=== PATIENT | female | born 1980 | race African-American/Black ===

== ENCOUNTER 2018-08-22 08:14 | Emergency (ER) | payer MEDICAID ==
--- NOTE | 2018-08-22 09:33 | ER Document Report ---
HPI - HPI Time Seen by Provider: 08/22/18 09:06 Pain Level: 3 Context: Patient is a 38-year-old female who presents emergency department for sharp pain in her bilateral breaths. She states that she has had this for the past month. She states that she feels a tingling feeling and when she sleeps on her stomach, on top of her breasts, the pain is worse. She does not take any medications. She does have the Nexplanon control implant in her left arm. She denies any other past medical history. She is not currently breast-feeding. Her last baby was 18 years ago. She denies any nipple discharge at this time, but when she does have nipple discharge it is not bloody. - CONSTITUTIONAL Constitutional: DENIES: Fever, Chills - EENT EENT: DENIES: Sore Throat, Ear Pain, Nasal Drainage-Clear, Nasal Drainage- Purulent, Congestion, Eye problems - NEURO Neurology: DENIES: Headache, Weakness, Vision blurred, Dizzinesss / Vertigo - CARDIOVASCULAR Cardiovascular: DENIES: Chest pain - RESPIRATORY Respiratory: DENIES: Trouble Breathing, Coughing - GASTROINTESTINAL Gastrointestinal: DENIES: Abdominal Pain, Nausea, Patient vomiting, Diarrhea - REPRODUCTIVE Reproductive: DENIES: : - MUSCULOSKELETAL Musculoskeletal: DENIES: Extremity pain, Back Pain, Neck Pain, Swelling - DERM Skin Color: Normal Skin Problems: None - NURSING COMMENTS Comment: Bilateral breast pain Past Medical History - Social History Smoking Status: Never Smoker Family History: Reviewed & Not Pertinent Vertical Provider Document - CONSTITUTIONAL Agree With Documented VS: Yes Exam Limitations: No Limitations General Appearance: No Apparent Distress - HEENT HEENT: Atraumatic, Normocephalic, PERRLA - NECK Neck: Normal Inspection - RESPIRATORY Respiratory: Breath Sounds Normal, No Respiratory Distress - CARDIOVASCULAR Cardiovascular: Regular Rate, Regular Rhythm - MUSCULOSKELETAL/EXTREMETIES Musculoskeletal/Extremeties: FROM - NEURO Level of Consciousness: Awake, Alert, Appropriate - DERM Integumentary: Warm, Dry, No Rash Notes: No lumps noted on breast exam. Course - Re-evaluation Re-evalutation: 08/22/18 09:33 I have a very low suspicion for breast cancer, as the patient does not have any concerning lumps noted on breast exam. I am referring her out to her primary care provider. I have also suggested that she take Sudafed 2 doses today to see if this helps, as she may have dilated mammary glands that could possibly have milk in them. I have also instructed her to take another dose tomorrow if her symptoms do not get better. She is in agreement with this plan. I have also advised her to possibly get an ultrasound. She states she had an ultrasound done 3 years ago, but nothing was found. Verbal discharge instructions were given to the patient. They verbalized understanding. They are stable for discharge. - Vital Signs Vital signs: Temp Pulse Resp BP Pulse Ox 98.8 F 67 16 133/85 H 96 08/22/18 08:21 08/22/18 08:21 08/22/18 08:21 08/22/18 08:21 08/22/18 08:21 Discharge - Discharge Clinical Impression: Pain of both breasts Condition: Stable Disposition: HOME, SELF-CARE Additional Instructions: You are seen today in the emergency department for breast pain. You may have dilated breast ducts with milk in them. Please take Sudafed as directed on your prescription. Please follow-up with your primary care provider in regards to this visit. Prescriptions: Pseudoephedrine HCl [Sudafed] 60 mg PO DAILY #4 tablet Forms: Return to Work
[2018-08-22 09:45] VITALS: BP 147/84
== END 2018-08-22 09:45 | disposition home or self-care (01) ==
LOC: ER 08:14
DX: N64.4 Mastodynia (principal); R20.2 Paresthesia of skin; Z97.5 Presence of (intrauterine) contraceptive device
CPT/HCPCS: 99283

== ENCOUNTER → 2018-12-02 | Outpatient (CLI) | payer MEDICAID ==
--- NOTE | 2018-12-02 11:33 | WOMENS IMAGING REPORT ---
EXAM DESCRIPTION: BILAT DIAGNOSTIC MAMMO W/CAD; U/S BREAST UNILATERAL, COMPL COMPLETED DATE/TIME: 12/02/2018 10:33 am; 12/02/2018 11:12 am REASON FOR STUDY: N64.4 MASTODYNIA; N64.4 LEFT BREAST N64.4 MASTODYNIA COMPARISON: None. EXAM PARAMETERS: Standard craniocaudal and mediolateral oblique views of each breast recorded using digital acquisition. Additional left breast 90 mediolateral view and nipple profile 90 mediolateral view. Additional le ft breast ultrasound. Read with the assistance of CAD: .[facility] - R2 Layout Inspector Version 9.2 LIMITATIONS: None. FINDINGS: RIGHT BREAST MASSES: No suspicious masses. CALCIFICATIONS: No new or suspicious calcifications. ARCHITECTURAL DISTORTION: None. DEVELOPING DENSITY: None. ASYMMETRY: None noted. OTHER: No other significant findings. LEFT BREAST MASSES: No suspicious masses. CALCIFICATIONS: No new or suspicious calcifications. ARCHITECTURAL DISTORTION: None. DEVELOPING DENSITY: None. ASYMMETRY: None noted. OTHER: No other significant finding. Left breast ultrasound: Ultrasound of the left breast was performed. Entire left breast was imaged. No discrete masses. No worrisome acoustic absorption. No solid nodules. Incidental finding of a 2 mm cyst in the left royal ast far upper outer quadrant 10 to 11 o'clock position of doubtful clinical significance. IMPRESSION: No mammographic evidence for malignancy bilaterally. No sonographic evidence for malign sid left breast. No imaging findings to explain history of left breast pain BREAST DENSITY: b. There are scattered areas of fibroglandular density. BIRAD: ASSESSMENT: 2 Benign findings. RECOMMENDATION: RECOMMENDED FOLLOW UP: Please continue yearly bilateral screening mammography SPECIFIC INTERVENTION/IMAGING/CONSULTATION RECOMMENDED:No additional intervention/ imaging/consultati on needed at this time. COMMUNICATION:Patient notified by letter COMMENT: The patient has been notified of the results by letter per MQSA requirements. Additional no tification policies are in place for contacting patient with suspicious or incomplete findings. Quality ID #225: The [employer] recommends an annual screening mammogram for women aged 40 years or over. This facility utilizes a reminder system to ensure that all patients receive reminder letters, and/or direct phone calls for appointments. This includes reminders for routine scr eening mammograms, diagnostic mammograms, or other Breast Imaging Interventions when appropriate. Th is patient will be placed in the appropriate reminder system. TECHNICAL DOCUMENTATION: FINDING NUMBER: (1) ASSESSMENT: (1) JOB ID: [id number] [employer]- All Rights Reserved Reading location - IP/workstation name: [email or web address]
--- NOTE | 2018-12-02 11:33 | WOMENS IMAGING REPORT ---
EXAM DESCRIPTION: BILAT DIAGNOSTIC MAMMO W/CAD; U/S BREAST UNILATERAL, COMPL COMPLETED DATE/TIME: 12/02/2018 10:33 am; 12/02/2018 11:12 am REASON FOR STUDY: N64.4 MASTODYNIA; N64.4 LEFT BREAST N64.4 MASTODYNIA COMPARISON: None. EXAM PARAMETERS: Standard craniocaudal and mediolateral oblique views of each breast recorded using digital acquisition. Additional left breast 90 mediolateral view and nipple profile 90 mediolateral view. Additional le ft breast ultrasound. Read with the assistance of CAD: .[facility] - R2 [employer]yer Version 9.2 LIMITATIONS: None. FINDINGS: RIGHT BREAST MASSES: No suspicious masses. CALCIFICATIONS: No new or suspicious calcifications. ARCHITECTURAL DISTORTION: None. DEVELOPING DENSITY: None. ASYMMETRY: None noted. OTHER: No other significant findings. LEFT BREAST MASSES: No suspicious masses. CALCIFICATIONS: No new or suspicious calcifications. ARCHITECTURAL DISTORTION: None. DEVELOPING DENSITY: None. ASYMMETRY: None noted. OTHER: No other significant finding. Left breast ultrasound: Ultrasound of the left breast was performed. Entire left breast was imaged. No discrete masses. No worrisome acoustic absorption. No solid nodules. Incidental finding of a 2 mm cyst in the left royal ast far upper outer quadrant 10 to 11 o'clock position of doubtful clinical significance. IMPRESSION: No mammographic evidence for malignancy bilaterally. No sonographic evidence for malign sid left breast. No imaging findings to explain history of left breast pain BREAST DENSITY: b. There are scattered areas of fibroglandular density. BIRAD: ASSESSMENT: 2 Benign findings. RECOMMENDATION: RECOMMENDED FOLLOW UP: Please continue yearly bilateral screening mammography SPECIFIC INTERVENTION/IMAGING/CONSULTATION RECOMMENDED:No additional intervention/ imaging/consultati on needed at this time. COMMUNICATION:Patient notified by letter COMMENT: The patient has been notified of the results by letter per MQSA requirements. Additional no tification policies are in place for contacting patient with suspicious or incomplete findings. Quality ID #225: The [employer] recommends an annual screening mammogram for women aged 40 years or over. This facility utilizes a reminder system to ensure that all patients receive reminder letters, and/or direct phone calls for appointments. This includes reminders for routine scr eening mammograms, diagnostic mammograms, or other Breast Imaging Interventions when appropriate. Th is patient will be placed in the appropriate reminder system. TECHNICAL DOCUMENTATION: FINDING NUMBER: (1) ASSESSMENT: (1) JOB ID: [id number] [facility]- All Rights Reserved Reading location - IP/workstation name: [email or web address]
== END ==
LOC: WI 10:12
PROVIDERS: ATTEND Nurse Practitioner Family
DX: N64.4 Mastodynia (principal); N60.02 Solitary cyst of left breast
CPT/HCPCS: 76641; 77066

== ENCOUNTER 2019-04-13 09:04 | Emergency (ER) | payer MEDICAID ==
[2019-04-13 10:28] LABS: APPEARANCE,URINE CLEAR; BILIRUBIN,URINE NEGATIVE (NEGATIVE); COLOR,URINE YELLOW; GLUCOSE, URINE NEGATIVE (NEGATIVE); KETONES,URINE NEGATIVE (NEGATIVE); LEUKOCYTE ESTERASE,URINE NEGATIVE (NEGATIVE); NITRITE,URINE NEGATIVE (NEGATIVE); PROTEIN,URINE NEGATIVE (NEGATIVE); UROBILINOGEN,URINE NEGATIVE mg/dL (<2.0)
[2019-04-13] MEDS ORDERED: MORPHINE SULFATE 10 MG/ML INJ IM ONE (11:32)
[2019-04-13] MEDS ORDERED: KETOROLAC TROMETHAMINE 60 MG/2 ML SDV IM ONE (11:33)
--- NOTE | 2019-04-13 11:36 | ER Document Report ---
ED General - General Chief Complaint: Low Back Pain Stated Complaint: LEFT BREAST PAIN/LUMP,BACK PAIN Primary Care Provider: HILARY CHURCH MD [ACTIVE STAFF] - Follow up in 3-5 days KAREN RANDLE MD [Primary Care Provider] - Follow up as needed DONNIE POLLARD MD [ACTIVE STAFF] - Follow up in 3-5 days Mode of Arrival: Ambulatory Information source: Patient, [facility] Records Notes: 39-year-old female with asthma, bipolar disorder, chronic migraines presents with bilateral breast pain that have been ongoing for several years but worsened over the last few days. Patient reports pain in her left breast that has now radiated to her right breast. Has had prior similar symptoms and a recent ultrasound of her breast which did not reveal any evidence of malignancy. Patient reports that she has been to many providers regarding this breast pain. Denies any discharge from the nipple, fever, chills, nausea, vomiting. Patient also complaining of right low back pain that started 2 days prior to arrival. She denies any injury, fever, saddle anesthesia, lower extremity weakness, urinary retention, fecal incontinence, history of IV drug abuse. TRAVEL OUTSIDE OF THE [place] IN LAST 30 DAYS: No - HPI Onset: Other Onset/Duration: Intermittent Quality of pain: Throbbing Severity: Mild Associated symptoms: denies: Body/muscle aches, Chest pain, Nonproductive cough, Productive cough, Fever, Nausea, Shortness of breath Exacerbated by: Denies Relieved by: Denies Similar symptoms previously: Yes Recently seen / treated by doctor: Yes - Related Data Allergies/Adverse Reactions: No Known Allergies Allergy (Unverified 08/22/18 08:16) Past Medical History - General Information source: Patient, [facility] Records - Social History Smoking Status: Never Smoker Chew tobacco use (# tins/day): No Drug Abuse: None Lives with: Family Family History: Reviewed & Not Pertinent Patient has suicidal ideation: No Patient has homicidal ideation: No - Medical History Medical History: Other - Chronic breast pain Renal/ Medical History: Denies: Hx Peritoneal Dialysis Psychiatric Medical History: Reports: Hx Bipolar Disorder Review of Systems - Review of Systems Notes: REVIEW OF SYSTEMS: CONSTITUTIONAL : Denies fever, chills, or sweats. Denies recent illness. Denies weight loss, recent hospitalizations. EENT: Denies visual changes, eye pain. Denies sore throat, oral lesions, difficulty swallowing. CARDIOVASCULAR: Denies chest pain. Denies palpitations. Denies lower extremity edema. RESPIRATORY: Denies cough. Denies shortness of breath, wheezing. GASTROINTESTINAL: Denies abdominal pain or distention. Denies nausea, vomiting, or diarrhea. Denies blood in vomitus, stools, or per rectum. Denies black, tarry stools. Denies constipation. GENITOURINARY: Denies difficulty urinating, painful urination, frequency, blood in urine, or vaginal discharge. MUSCULOSKELETAL: Denies neck pain or stiffness. Denies joint pain or swelling. SKIN: Denies rash, lesions or sores. HEMATOLOGIC : Denies easy bruising or bleeding. LYMPHATIC: Denies swollen glands. NEUROLOGICAL: Denies confusion or altered mental status. Denies loss of consciousness. Denies dizziness or lightheadedness. Denies headache. Denies weakness or paralysis. Denies problems difficulty with ambulation, slurred speech. Denies sensory loss, numbness, or tingling. Denies seizures. PSYCHIATRIC: Denies anxiety or stress. Denies depression, suicidal ideation, or homicidal ideation. Denies visual or auditory hallucinations. Physical Exam - Vital signs Vitals: Temp Pulse Resp BP Pulse Ox 98.1 F 87 16 142/97 H 96 04/13/19 09:25 04/13/19 09:25 04/13/19 09:25 04/13/19 09:25 04/13/19 09:25 - Notes Notes: PHYSICAL EXAMINATION: GENERAL: Well-appearing, well-nourished and in no acute distress. HEAD: Atraumatic, normocephalic. EYES: Pupils equal round and reactive to light, extraocular movements intact, conjunctiva are normal. ENT: Nares patent, oropharynx clear without exudates. Moist mucous membranes. NECK: Normal range of motion, supple without lymphadenopathy LUNGS: Breath sounds clear to auscultation bilaterally and equal. No wheezes rales or rhonchi. HEART: Regular rate and rhythm without murmurs ABDOMEN: Soft, nontender, nondistended abdomen. No guarding, no rebound. No masses appreciated. Female : deferred Musculoskeletal: Normal range of motion, no pitting or edema. No cyanosis. NEUROLOGICAL: Mental status; alert and oriented x3. Cranial nerves II through XII intact. Sensation intact to sharp/dull differentiation in all extremities. Motor; normal tone. No abnormal movements appreciated. No pronator drift. Strength tested and 5/5 in bilateral wrist flexion/extension, elbow flexion/extension, shoulder abduction, straight leg raise, knee flexion/extension, ankle dorsiflexion/plantar flexion. Patient ambulates with a steady gait. Coordination; no ataxia. Finger to nose and heel to myrick testing intact bilaterally. Reflexes; brachial radialis, biceps, and patellar reflexes within normal limits and symmetric bilaterally. Babinski with downgoing toes bilaterally. PSYCH: Normal mood, normal affect. SKIN: Warm, Dry, normal turgor, no rashes or lesions noted. Course - Re-evaluation Re-evalutation: Laboratory 04/13/19 10:09 Urine Color YELLOW Urine Appearance CLEAR Urine pH 5.0 Ur Specific [place] 1.020 Urine Protein NEGATIVE Urine Glucose (UA) NEGATIVE Urine Ketones NEGATIVE Urine Blood MODERATE H Urine Nitrite NEGATIVE Urine Bilirubin NEGATIVE Urine Urobilinogen NEGATIVE Ur Leukocyte Esterase NEGATIVE Urine WBC (Auto) 2 Urine RBC (Auto) 2 Urine Bacteria (Auto) TRACE Squamous Epi Cells Auto 6 Urine Mucus (Auto) FEW Urine Ascorbic Acid NEGATIVE Temp Pulse Resp BP Pulse Ox 98.3 F 71 16 141/97 H 98 04/13/19 11:41 04/13/19 11:41 04/13/19 11:41 04/13/19 11:41 04/13/19 11:41 04/13/19 11:48 ED Course History: Chronic bilateral breast pain, acute right-sided back pain Patient evaluated. Vital signs were reviewed. Patient is afebrile, normotensive. Previous medical records and nursing notes reviewed. Ultrasound and mammogram reviewed from November 2018 which showed no evidence of malignancy. Patient does not appear toxic or dehydrated they are in no acuted distress Exam Findings: Normal physical exam, ambulates with steady gait, pain not reproducible. Urinalysis not consistent with urinary tract infection. Does show moderate blood but patient is currently on her menses. Patient Interventions/Monitor: Patient did receive IM Toradol, IM morphine. Advised that she needs to follow-up with [employer]. MDM: Presentation of a well appearing patient complaining of acute on chronic back pain. No rapid progression of symptoms, systemic symptoms including fevers, chills, weight loss, history of recent bacterial infection, bilateral symptoms, numbness, weakness, difficulty walking, urinary retention or bowel incontinence, personal history of cancer, immunosuppression, diabetes, known AAA, or history of IV drug use. Exam is without point tenderness over vertebral bodies, pulsatile abdominal mass, and patient has symmetric and intact lower extremity strength, sensation, and reflexes without clonus. 2+ symmetric medial malleolar and dorsalis pedis pulses Based on history and physical, I have a very low suspicion of a concerning etiology of pain including epidural compression syndrome, spinal infection, transverse myelitis, malignancy, abdominal aortic aneurysm, renal colic, acute lower extremity claudication, neurogenic claudication, ankylosing spondylitis, or other intra-abdominal process. Due to absence of concerning risk factors in history and physical as well as absence of rapidly progressive, severe, or bilateral symptoms, will defer imaging at this point. Plan to manage conservatively with outpatient analgesia, analgesia, and physical therapy. - Acetaminophen 650 q 4 + ibuprofen 600 q 6 - Continue normal daily activities as tolerated by pain - Provide with standard musculoskeletal back pain exercise instructions - Instruct to follow up with primary care provider if symptoms not improving - Provide careful return precautions and concerning symptoms to watch for. Patient was evaluated and treated as appropriate for the patient's presenting symptoms and complaint, with consideration of any critical or life threatening conditions that may be associated with their obtained history and exam as noted above. All results were discussed with patient and... Patient provided the opportunity to ask questions, and express concerns. Patient was educated on treatments based on their presumed diagnosis as noted above. At this time we will discharge the patient with return precautions and follow-up recommendations. Verbal discharge instructions given a the bedside. Medication warnings reviewed. Patient is in agreement with this plan and has verbalized understanding of return precautions. After careful consideration I feel that that patient can be safely discharged from the emergency department, they were advised to followup with a primary care physician in 2-3 days. Dictation on this chart was performed using voice recognition software and may result in unintended grammatical, spelling, syntax or errors. 04/13/19 11:51 - Vital Signs Vital signs: Temp Pulse Resp BP Pulse Ox 98.3 F 71 16 141/97 H 98 04/13/19 11:41 04/13/19 11:41 04/13/19 11:41 04/13/19 11:41 04/13/19 11:41 - Laboratory Laboratory results interpreted by me: 04/13/19 10:09 Urine Blood MODERATE H - Diagnostic Test Radiology reviewed: Image reviewed, Reports reviewed Discharge - Discharge Clinical Impression: Chronic pain of breast Low back pain Qualifiers: Chronicity: acute Back pain laterality: right Sciatica presence: without sciatica Qualified Code(s): M54.5 - Low back pain Condition: Good Disposition: HOME, SELF-CARE Instructions: Breast Fibrocystic Disease ([facility]), Breast Lumps ([facility]), Breast Self-Examination ([facility]), Low Back Pain ([facility]) Additional Instructions: You have been seen in the Emergency Department (ED) today for back pain. Your workup and exam have not shown any acute abnormalities and you are likely suffering from muscle strain or possible problems with your discs, but there is no treatment that will fix your symptoms at this time. Please take the naproxen that has been prescribed as directed. You should also purchase a local lidocaine cream such as "aspercreme with lidocaine" and use per bottle instructions to the affected area. Apply heat to the area as often as you are able. Continue to keep active and avoid prolonged periods of bed rest. Please follow up with your doctor as soon as possible regarding today's ED visit and your back pain. Return to the ED for worsening back pain, fever, weakness or numbness of either leg, or if you develop either (1) an inability to urinate or have bowel movements, or (2) loss of your ability to control your bathroom functions (if you start having "accidents"), or if you develop other new symptoms that concern you.concern you. Follow up with your [id number] hours for further care or return to the ED IMMEDIATELY if symptoms worsen or you have any concerns. If you cannot afford to follow up with your primary care physician a list of low cost clinics have been provided at the end of your discharge papers as well. Most prescribed medications have multiple side effects. The safest thing to do is when filling your prescription speak to your pharmacist regarding possible interactions with your normal home medications and over the counter medications such as Ibuprofen, Tylenol, Benadryl. If you experience any symptoms that cause you discomfort or concern you should discontinue the medication immediately and return to the emergency room or call your primary care physician. Prescriptions: Hydrocodone/Acetaminophen [[place] 5-325 mg Tablet] 1 tab PO Q6H #8 tablet Forms: Elevated Blood Pressure Referrals: KAREN RANDLE MD [Primary Care Provider] - Follow up as needed HILARY CHURCH MD [ACTIVE STAFF] - Follow up in 3-5 days DONNIE POLLARD MD [ACTIVE STAFF] - Follow up in 3-5 days
[2019-04-13 12:08] VITALS: BP 142/88
== END 2019-04-13 12:10 | disposition home or self-care (01) ==
LOC: ER 09:04
DX: G89.29 Other chronic pain (principal); N64.4 Mastodynia; M54.5 Low back pain
CPT/HCPCS: 99283; 96372; 81001; J1885; J2270

== ENCOUNTER 2019-06-02 15:44 | Emergency (ER) | payer MEDICAID ==
[2019-06-02 15:49] VITALS: BP 149/88
--- NOTE | 2019-06-02 16:50 | ER Document Report ---
ED ENT - General Chief Complaint: Sore Throat Stated Complaint: SORE THROAT,BACK PAIN,FEVER Time Seen by Provider: 06/02/19 16:40 Primary Care Provider: YOEL SOMERS FNP-C [Primary Care Provider] - Follow up as needed Mode of Arrival: Ambulatory Information source: Patient Notes: 39-year-old female presents to ED for cough cold congestion sore throat body aches since yesterday. She states the highest temp she has had is 99.7. She is alert oriented respirations regular nonlabored speaking in full sentences. She does definitely have signs and symptoms of upper respiratory infection to include postnasal drip sore throat body aches. She states that she would not want the Tamiflu if she was positive for the flu so we will not test for the flu at this time. TRAVEL OUTSIDE OF THE [place] IN LAST 30 DAYS: No - HPI Patient complains to provider of: Ear problem, Nose problem, Throat problem Onset: Yesterday Onset/Duration: Gradual Quality of pain: Achy Severity: Moderate Pain Level: 3 Location of pain: Face, Nose, Sinus, Throat Associated symptoms: Congestion, Cough, Ear pain, Fever, Runny nose, Sinus drainage, Sore throat Similar symptoms previously: Yes Recently seen / treated by doctor: No - Related Data Allergies/Adverse Reactions: No Known Allergies Allergy (Verified 06/02/19 16:39) Past Medical History - General Information source: Patient - Social History Smoking Status: Never Smoker Frequency of alcohol use: None Drug Abuse: None Occupation: Transported from vehicles Family History: Reviewed & Not Pertinent Patient has suicidal ideation: No Patient has homicidal ideation: No Renal/ Medical History: Denies: Hx Peritoneal Dialysis Psychiatric Medical History: Reports: Hx Bipolar Disorder Review of Systems - Review of Systems Constitutional: No symptoms reported EENT: Nose congestion, Nose discharge, Sinus pressure, Sinus discharge, Throat pain Cardiovascular: No symptoms reported Respiratory: Cough Gastrointestinal: No symptoms reported Genitourinary: No symptoms reported Female Genitourinary: No symptoms reported Musculoskeletal: Muscle pain - Body aches Skin: No symptoms reported Hematologic/Lymphatic: No symptoms reported Neurological/Psychological: No symptoms reported Physical Exam - Vital signs Vitals: Temp Pulse Resp BP Pulse Ox 99.7 F 114 H 18 149/88 H 96 06/02/19 15:48 06/02/19 15:48 06/02/19 15:48 06/02/19 15:48 06/02/19 15:48 Interpretation: Normal - General General appearance: Appears well, Alert - HEENT Head: Normocephalic, Atraumatic Eyes: Normal Pupils: PERRL Ears: Normal External canal: Normal Tympanic membrane: Normal Sinus: Normal Nasal: Purulent discharge, Swelling Mouth/Lips: Normal Mucous membranes: Normal Pharynx: Post nasal drainage. No: Erythema, Exudate, Tonsillar hypertrophy Neck: Normal - Respiratory Respiratory status: No respiratory distress Chest status: Nontender Breath sounds: Nonproductive cough Chest palpation: Normal - Cardiovascular Rhythm: Regular Heart sounds: Normal auscultation Murmur: No - Abdominal Inspection: Normal Distension: No distension Bowel sounds: Normal Tenderness: Nontender Organomegaly: No organomegaly - Back Back: Normal, Nontender - Extremities General upper extremity: Normal inspection, Nontender, Normal color, Normal ROM, Normal temperature General lower extremity: Normal inspection, Nontender, Normal color, Normal ROM, Normal temperature, Normal weight bearing. No: Jakub's sign - Neurological Neuro grossly intact: Yes Cognition: Normal Orientation: AAOx4 [place] Coma Scale Eye Opening: Spontaneous [place] Coma Scale Verbal: Oriented [place] Coma Scale Motor: Obeys Commands [place] Coma Scale Total: 15 Speech: Normal Motor strength normal: LUE, RUE, LLE, RLE Sensory: Normal - Psychological Associated symptoms: Normal affect, Normal mood - Skin Skin Temperature: Warm Skin Moisture: Dry Skin Color: Normal Course - Vital Signs Vital signs: Temp Pulse Resp BP Pulse Ox 99.7 F 104 H 18 149/88 H 96 06/02/19 15:48 06/02/19 16:44 06/02/19 15:48 06/02/19 15:48 06/02/19 15:48 Discharge - Discharge Clinical Impression: Viral sore throat URI (upper respiratory infection) Qualifiers: URI type: unspecified viral URI Qualified Code(s): J06.9 - Acute upper respiratory infection, unspecified Condition: Stable Disposition: HOME, SELF-CARE Additional Instructions: SORE THROAT: Sore throats may be caused by viruses, bacteria, or fungi. Most are due to a virus, and must get better on their own. Bacterial sore throats, particularly those due to "strep," need treatment with antibiotics. If an antibiotic is prescribed, be sure to take the medication for a full 10 days. Failure to take the antibiotic can result in complications such as rheumatic fever. Sometimes, an injection of antibiotics is given instead of pills or liquid. This single "shot" is equal in effectiveness to the oral medication. To relieve symptoms, take acetaminophen for pain. Sip clear liquids frequently, or eat popsicles or ice chips. Anesthetic sprays or lozenges may help. Make sure the air in the room is not too dry. Avoid using decongestants or antihistamines. Call the doctor if there is no improvement in two days, or if you have difficulty breathing, increasing throat pain, high fever, rash, or frequent vomiting. UPPER RESPIRATORY ILLNESS: You have a viral infection of the respiratory passages -- a "cold." This common infection causes nasal congestion, drainage, and often sore throat and cough. It is highly contagious. The disease usually lasts about 10 to 14 days. There is no "cure" for the viral infection -- it must run its course. If there is a complication, such as bacterial infection in the nose, sinuses, middle ear, or bronchial tubes, antibiotics may be required. The antibiotics won't affect the virus. Drink plenty of fluids. A humidifier may help. An expectorant medication or decongestant may make you more comfortable. Use acetaminophen or ibuprofen for fever or aches. See the doctor if fever persists over two days, if there is any significant worsening of your symptoms, or if you simply fail to improve as expected. You have been recommended treatment with Claritin 10 mg Sudafed 30 mg and Mucinex 600 mg. These are all [id number] medications for cough cold congestion. You do need to call the go to the pharmacist to get the Sudafed from behind the counter please get a little red pills they are more effective. You could also use Flonase which is wpny-khn-tjvuwet 1 spray each nostril twice a day. You could also use salt soda solution gargles. These will help to remove the drainage from the back your throat. Chloraseptic spray was [id number] that will also help with your sore throat. Salt and soda solution gargle 1 quart of water 1 tablespoon of salt 1 teaspoon of baking soda Mixed 3 ingredients together and boil for 1 minute Placed in a covered quart jar Use 1/2 ounce of cold solution to gargle 3 times a day USE OF ACETAMINOPHEN (Tylenol): Acetaminophen may be taken for pain relief or fever control. It's much safer than aspirin, offering a wider range of "safe" dosages. It is safe during . Some brand names are Tylenol, Panadol, Datril, Anacin 3, Tempra, and Liquiprin. Acetaminophen can be repeated every four hours. The following are maximum recommended dosages: >89 pounds or adults 650 mg to 900 mg Acetaminophen can be repeated every four hours. Maximum dose not to exceed 4000 mg a day. FOLLOW-UP CARE: If you have been referred to a physician for follow-up care, call the physicians office for an appointment as you were instructed or within the next two days. If you experience worsening or a significant change in your symptoms, notify the physician immediately or return to the Emergency Department at any time for re-evaluation. Forms: Return to Work Referrals: YOEL SOMERS, HEATHER-C [Primary Care Provider] - Follow up as needed
== END 2019-06-02 16:45 | disposition home or self-care (01) ==
LOC: ER 15:44
DX: J02.8 Acute pharyngitis due to other specified organisms (principal); B97.89 Other viral agents as the cause of diseases classified elsewhere; R05 Cough; R09.81 Nasal congestion; R09.82 Postnasal drip; M79.10 Myalgia, unspecified site
CPT/HCPCS: 99283

== ENCOUNTER 2019-08-31 11:03 | Day surgery (SDC) | payer MEDICAID ==
[2019-08-26 09:50] LABS: HEMATOCRIT 36.8 % (36.0-47.0); HEMOGLOBIN 12.3 g/dL (12.0-15.5); MEAN CORPUSCULAR HEMOGLOBIN 27.8 pg (27.0-33.4); MEAN CORPUSCULAR HGB CONC 33.4 g/dL (32.0-36.0); MEAN CORPUSCULAR VOLUME 83 fl (80-97); PLATELET COUNT 191 10^3/uL (150-450); RED BLOOD COUNT 4.43 10^6/uL (3.72-5.28); RED CELL DISTRIBUTION WIDTH 14.5 % (11.5-14.0); WHITE BLOOD COUNT 5.4 10^3/uL (4.0-10.5)
[2019-08-26 10:03] LABS: APPEARANCE,URINE SLIGHTLY-CLOUDY; BILIRUBIN,URINE NEGATIVE (NEGATIVE); COLOR,URINE YELLOW; GLUCOSE, URINE NEGATIVE (NEGATIVE); KETONES,URINE NEGATIVE (NEGATIVE); LEUKOCYTE ESTERASE,URINE NEGATIVE (NEGATIVE); NITRITE,URINE NEGATIVE (NEGATIVE); PROTEIN,URINE NEGATIVE (NEGATIVE); URINE SPECIFIC GRAVITY 1.025; UROBILINOGEN,URINE NEGATIVE mg/dL (<2.0)
[~2019-08-31 11:03] MED LIST: CEFAZOLIN 2 GM/D5W RTU 2 GM/50 ML RTUPB IV PRN; LACTATED RINGERS 1000 ML IV PRN; LIDOCAINE 0.5% INJ-PF (5 MG/ML) 50 ML SDV SUBCUT PRN
[2019-08-31] MEDS ORDERED: CEFAZOLIN 2 GM/D5W RTU 2 GM/50 ML RTUPB IV ONE (11:30)
[2019-08-31] MEDS ORDERED: LIDOCAINE 2% INJ-PF (20 MG/ML) 10 ML AMPUL ONE (11:49)
[2019-08-31] MEDS ORDERED: PROPOFOL INJ 200 MG/20 ML VIAL IV ONE (11:50)
[2019-08-31] MEDS ORDERED: FENTANYL CITRATE INJ/PF 100 MCG/2 ML AMPUL ONE (11:50)
[2019-08-31] MEDS ORDERED: MIDAZOLAM 2 MG/2 ML INJ ONE (11:50)
[2019-08-31] MEDS ORDERED: ONDANSETRON HCL INJ/PF 4 MG/2 ML SDV ONE (11:50)
[2019-08-31] MEDS ORDERED: LIDOCAINE 1%/EPINEPHRINE INJ 20 ML VIAL ONE (12:08)
[2019-08-31] MEDS ORDERED: VASOPRESSIN INJ 20 UNIT/1 ML VIAL ONE (12:08)
[2019-08-31] MEDS ORDERED: MORPHINE SULFATE 10 MG/ML INJ IV PRN (12:24)
[2019-08-31] MEDS ORDERED: ONDANSETRON HCL INJ/PF 4 MG/2 ML SDV IV PRN (12:24)
[2019-08-31] MEDS ORDERED: DIPHENHYDRAMINE HCL 50 MG/ML VIAL IV PRN (12:24)
[2019-08-31] MEDS ORDERED: MEPERIDINE HCL/PF INJ 25 MG/1 ML DISP.SYRIN IV PRN (12:24)
[2019-08-31] MEDS ORDERED: FENTANYL CITRATE INJ/PF 100 MCG/2 ML AMPUL IV PRN ×3 (12:24)
[2019-08-31] MEDS ORDERED: PROMETHAZINE HCL INJ 25 MG/1 ML VIAL IV PRN ×2 (12:24)
[2019-08-31] MEDS ORDERED: OXYCODONE-ACETAMINOPHEN 5-325 MG TABLET PO PRN ×2 (12:24)
--- NOTE | 2019-08-31 12:42 | Operative Report ---
Operative Report DATE OF SURGERY: 08/31/19 PREOPERATIVE DIAGNOSIS: DEBORA-2 POSTOPERATIVE DIAGNOSIS: Same OPERATION: Cold knife cone SURGEON: THOMAS GATICA ANESTHESIA: Moderate Sedation TISSUE REMOVED OR ALTERED: Portion of cervix COMPLICATIONS: None ESTIMATED BLOOD LOSS: Less than 5 cc PROCEDURE: Patient placed in dorsal lithotomy position prepped and draped in a sterile fashion. Hemostatic sutures of 2-0 Vicryl placed at 3 and 9:00 on the cervix. Cervix was injected with dilute solution of Xylocaine and Pitressin. Puncture wounds were again made at 369 and 12 and connected with sharp dissection and the issue in a cone shape was removed. ECC was then done. Bed was then cauterized with cautery. Gelfoam soaked in Monsel solution was placed in the eyes. Static sutured and plicated in the midline. Stasis noted. Terminated she taken recovery in good condition.
[2019-08-31] MEDS ORDERED: ACETAMINOPHEN SOLN 325 MG/10.15 ML UDCUP ONE (13:16)
[2019-08-31] MEDS ORDERED: IBUPROFEN 800 MG TABLET PO PRN (13:22)
[2019-08-31] MEDS ORDERED: ONDANSETRON HCL 8 MG TABLET PO PRN (13:23)
[2019-08-31] MEDS ORDERED: ACETAMINOPHEN SOLN 325 MG/10.15 ML UDCUP PO ONE (13:45)
[2019-08-31] MEDS ORDERED: IBUPROFEN 800 MG TABLET PO SCH (14:00)
[2019-08-31 16:06] VITALS: BP 151/104
== END 2019-08-31 14:40 | disposition home or self-care (01) ==
LOC: OROUT 11:03
PROVIDERS: ATTEND Obstetrics & Gynecology Gynecology
DX: N87.0 Mild cervical dysplasia (principal); R87.810 Cervical high risk human papillomavirus (HPV) DNA test positive; N72 Inflammatory disease of cervix uteri; Z03.818 Encounter for observation for suspected exposure to other biological agents ruled out; Z79.3 Long term (current) use of hormonal contraceptives
CPT/HCPCS: 36415; 85027; 87635; 81025; 81001; 88305 ×2; 88307 ×2; 00940; 57520; J2250; J3010; J3490 ×4; J2405; J2704; J0690; 940

== ENCOUNTER → 2019-12-08 | Outpatient (CLI) | payer MEDICAID ==
--- NOTE | 2019-12-08 10:30 | WOMENS IMAGING REPORT ---
EXAM DESCRIPTION: 3D SCREENING MAMMO BILAT IMAGES COMPLETED DATE/TIME: 12/08/2019 9:57 am REASON FOR STUDY: Z12.31 ENCNTR SCREEN MAMMOGRAM FOR MALIGNANT NEOPLASM OF BREAST Z12.31 ENCNTR SCR EEN MAMMOGRAM FOR MALIGNANT NEOPLASM OF CARMEL COMPARISON: 2019 EXAM PARAMETERS: Views: Standard craniocaudal and mediolateral oblique views of each breast recorded using digital acquisition and breast tomosynthesis. Read with the assistance of CAD. [facility] R2 Product Development Version 9.2 LIMITATIONS: None. FINDINGS: No suspicious masses, suspicious calcifications or architectural distortion. No areas of c oncern. IMPRESSION: NEGATIVE MAMMOGRAM. BIRADS 1. BREAST DENSITY: b. There are scattered areas of fibroglandular density. BIRAD: ASSESSMENT: 1 NEGATIVE RECOMMENDATION: ROUTINE SCREENING COMMENT: The patient has been notified of the results by letter per MQSA requirements. Additional no tification policies are in place for contacting patient with suspicious or incomplete findings. Quality ID #[id number]: The [employer] recommends an annual screening mammogram for women aged 40 years or over. This facility utilizes a reminder system to ensure that all patients receive reminder letters, and/or direct phone calls for appointments. This includes reminders for routine scr eening mammograms, diagnostic mammograms, or other Breast Imaging Interventions when appropriate. Th is patient will be placed in the appropriate reminder system. TECHNICAL DOCUMENTATION: FINDING NUMBER: (1) ASSESSMENT: (1) JOB ID: [id number] 2010 [employer]- All Rights Reserved Reading location - IP/workstation name: [email or web address]
== END ==
LOC: WI 09:33
PROVIDERS: ATTEND Nurse Practitioner Family
DX: Z12.31 Encounter for screening mammogram for malignant neoplasm of breast (principal)
CPT/HCPCS: 77063; 77067